=== PATIENT | female | born 1980 | race African-American/Black ===

== ENCOUNTER 2016-10-27 00:36 | Emergency (ER) | payer BC ==
[~2016-10-27] VITALS: Ht 167.6 cm; Wt 76.0 kg
[~2016-10-27 00:36] MED LIST: CHLO.12%30 SSP; IBUP800T23 PO; PENI500T PO; VIST50CA PO
[2016-10-27 00:37] VITALS: BP 167/86; PULSE 85; RESP 16; TEMP 97.1; O2SAT 100
[2016-10-27] MEDS ORDERED: IBUPROFEN 800 MG TAB PO ONE (01:15)
[2016-10-27] MEDS ORDERED: TETRACAINE 0.5% OPTH SOLN 2 ML BTL LEFT EYE ONE (01:15)
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
[2016-10-27] MEDS ORDERED: TETRACAINE 0.5% OPTH SOLN 15 ML BTL LEFT EYE ONE (01:30)
[2016-10-27] MEDS ORDERED: ERYTOIN10 LEFT EYE (01:58)
[2016-10-27] MEDS ORDERED: DICL75TA PO (01:58)
== END 2016-10-27 02:22 | disposition home or self-care (01) ==
LOC: NEPB 00:36
DX: H57.12 Ocular pain, left eye (principal); I10 Essential (primary) hypertension; H53.8 Other visual disturbances; H11.32 Conjunctival hemorrhage, left eye
CPT/HCPCS: 99283

== ENCOUNTER 2017-10-07 05:57 | Emergency (ER) | payer BC, OTHER ==
[~2017-10-07] VITALS: Ht 165.1 cm; Wt 75.0 kg
[~2017-10-07 05:57] MED LIST changes: -CHLO.12%30 SSP; +DICL75TA PO; +ERYTOIN10 LEFT EYE; -IBUP800T23 PO; -PENI500T PO; -VIST50CA PO
[2017-10-07 05:59] VITALS: BP 143/79; PULSE 80; RESP 16; TEMP 98.1; O2SAT 99
[2017-10-07] MEDS ORDERED: ACETAMINOPHEN 325 MG TAB PO ONE (06:15)
--- NOTE | 2017-10-07 06:16 | PD ---
HPI Chief Complaint: Back/ Neck Pain or Injury Time Seen by Provider: 06:12 Travel History International Travel<30 days: No Contact w/Intl Traveler<30days: No Traveled to known affect area: No History of Present Illness HPI This is a 37-year-old female who is 13 weeks based on an ultrasound performed 4 days ago. She is here complaining of left-sided neck pain. Symptoms started 3 days ago. The pain is an aching pain in the posterior left side of her neck which is worse with movement of the neck. She has not tried using the [id number] medication for symptom relief. She has no other associated symptoms. [facility] Past Medical History Diminished Hearing: No Hypertension: Yes Immunizations Current: Yes ?: : 5 Para: 3 : 2 Past Surgical History Other Surgery: Yes () Social History Alcohol Use: No Tobacco Use: No Substance Use: No Allergies-Medications (Allergen,Severity, Reaction): Coded Allergies: No Known Allergies (Verified Adverse Reaction, Unknown, 10/07/17) Reported Meds & Prescriptions Reported Meds & Active Scripts Active No Active Prescriptions or Reported Medications Review of Systems Except as stated in HPI: all other systems reviewed are Neg Physical Exam Narrative GENERAL: Well-developed well-nourished female in no acute distress SKIN: Warm and dry. HEAD: Atraumatic. Normocephalic. EYES: Pupils equal and round. No scleral icterus. No injection or drainage. ENT: No nasal bleeding or discharge. Mucous membranes pink and moist. NECK: Trachea midline. No JVD. CARDIOVASCULAR: Regular rate and rhythm. No murmur appreciated. RESPIRATORY: No accessory muscle use. Clear to auscultation. Breath sounds equal bilaterally. GASTROINTESTINAL: Abdomen soft, non-tender, nondistended. Hepatic and splenic margins not palpable. MUSCULOSKELETAL: No obvious deformities. The patient's pain is localized to the left cervical paravertebral musculature. No tenderness to palpation. The patient maintains full rotation of the neck. NEUROLOGICAL: Awake and alert. No obvious cranial nerve deficits. Motor grossly within normal limits. Normal speech. Data Data Last Documented VS Vital Signs Date Time Temp Pulse Resp B/P (MAP) Pulse Ox O2 Delivery O2 Flow Rate FiO2 10/07/17 05:59 98.1 80 16 143/79 (100) 99 Room Air Orders Orders Acetaminophen (Tylenol) (10/07/17 06:15) Ed Discharge Order (10/07/17 06:14) [facility] Medical Decision Making Medical Screen Exam Complete: Yes Emergency Medical Condition: Yes Medical Record Reviewed: Yes Differential Diagnosis Cervical strain, cervical artery dissection, herniated nucleus pulposis, meningitis, lymphadenitis Narrative Course 37-year-old female presents with posterior left-sided neck pain for 3 days. Examination is reassuring. Her symptoms appear to be muscular in nature. Recommended Tylenol which is category B, moist warm and cool compresses. She is stable for discharge. Diagnosis Primary Impression: Cervical strain Additional Instructions: Take [id number] Tylenol for pain per dosing instructions on the bottle. Alternate warm compresses and cool compresses several times a day. Follow up closely with primary care physician and return for any emergent medical conditions. Med/Other Pt SpecificInfo: No Change to Meds Scripts No Active Prescriptions or Reported Meds Disposition: 01 DISCHARGE HOME Condition: Stable Gregorio Greer Oct 07, 2017 06:16
== END 2017-10-07 06:29 | disposition home or self-care (01) ==
LOC: NEPD 05:57
DX: S16.1XXA Strain of muscle, fascia and tendon at neck level, initial encounter (principal); O13.1 Gestational [pregnancy-induced] hypertension without significant proteinuria, first trimester; I10 Essential (primary) hypertension; Z3A.13 13 weeks gestation of pregnancy; X58.XXXA Exposure to other specified factors, initial encounter
CPT/HCPCS: 99282

== ENCOUNTER 2018-01-19 15:39 | Emergency (ER) | payer OTHER ==
[~2018-01-19] VITALS: Ht 165.1 cm; Wt 79.5 kg
[2018-01-19 15:45] VITALS: BP 131/69; PULSE 89; RESP 18; TEMP 97.5; O2SAT 100
--- NOTE | 2018-01-19 15:59 | PD ---
Physical Exam Date Seen by Provider: Jan 19, 2018 Time Seen by Provider: 15:56 Narrative 38 year old female presents to the emergency department for evaluation of a frontal headache that started on Thursday, 3 days ago. She does reports h/o headaches. She is currently 28 weeks . Current pain is 2/10. Data Data Last Documented VS Vital Signs Date Time Temp Pulse Resp B/P (MAP) Pulse Ox O2 Delivery O2 Flow Rate FiO2 01/19/18 15:45 97.5 89 18 131/69 (89) 100 MDM Supervised Visit with AMBER: No Narrative Course 38 year old female presents to the emergency department for evaluation of a headache. After patient was triaged, she states she was concerned about her blood pressure and now wants to leave. She is aware she is leaving AMA. She is instructed to follow up with her OB. She is to return for any acute, worsening of symptoms. Diagnosis Primary Impression: Left against medical advice Scripts No Active Prescriptions or Reported Meds Disposition: 07 AGAINST MEDICAL ADVICE Adele Iraheta Jan 19, 2018 15:59
== END 2018-01-19 17:28 | disposition left against medical advice (07) ==
LOC: NED 15:39
DX: O26.893 Other specified pregnancy related conditions, third trimester (principal); R51 Headache; R03.0 Elevated blood-pressure reading, without diagnosis of hypertension; Z3A.28 28 weeks gestation of pregnancy; Z34.93 Encounter for supervision of normal pregnancy, unspecified, third trimester
CPT/HCPCS: 99281

== ENCOUNTER 2018-01-25 10:30 | Observation (INO) | payer OTHER ==
[2018-01-25] VITALS (24 sets, daily range): BP systolic 129–169; BP diastolic 63–92; PULSE 89–109; RESP 16–18; TEMP 98.1–98.8
[2018-01-25] MEDS ORDERED: LACTATED RINGER'S 1000 ML INJ 1,000 ML IV SCH (10:53)
--- NOTE | 2018-01-25 11:01 | PD ---
HPI Chief Complaint abdominal pain Date Seen: Jan 25, 2018 Time Seen: 10:54 Travel History International Travel<30 Days: No Contact w/Intl Traveler<30Days: No History of Present Illness HPI Patient is a 38 year old reportedly at 28 and 3/7 weeks gestation per patient, ZAINA 04/16/2018 based on first trimester US, patient of Magalys Lovell, who presents with severe abdominal contractions since this morning. She had two episodes of vomiting this morning as well. Possible leakage of fluid this morning but she thought it was urine. She denies vaginal bleeding and contractions. She feels baby moving regularly. She denies RIVERA/N/V/D/fever/sick contacts/SOB/calf pain/dizziness/seeing spots. OB care is with Magalys Lovell. She notes that her pain does not feel like labor pains and is located across the top of the abdomen. She has history of pre-eclampsia in two of her previous , requiring induction. History Past Medical History Narrative Medical Denies Per EMR, pre-existing chronic HTN noted in 2012, not on medications then or at this time Obstetric History Obstetric History Blood type A+ First visit during this at 10 weeks, reportedly uncomplicated so far History of PreE x 2 pregnancies BP 131/69 in ED 01/19/2018 Past Surgical History Surgical History: No Previous Surgery Family History Family History: Negative Social History Alcohol Use: No Tobacco Use: No Substance Abuse: No Allergies-Medications (Allergen,Severity, Reaction): Coded Allergies: No Known Allergies (Verified Adverse Reaction, Unknown, 10/07/17) Home Meds No Active Prescriptions or Reported Meds Review of Systems Except as stated in HPI: all other systems reviewed are Neg Physical Exam Narrative GENERAL: Well-nourished, well-developed patient appearing to be in significant pain every 5 or so minutes SKIN: Warm and dry. No rashes or ecchymoses. HEAD: Normocephalic and atraumatic. EYES: No scleral icterus. No injection or drainage. ENT: No nasal drainage noted. Mucous membranes pink. Airway patent. NECK: Supple, trachea midline. No JVD. CARDIOVASCULAR: Regular rate and rhythm without murmurs, gallops, or rubs. RESPIRATORY: Breath sounds equal bilaterally. No accessory muscle use. ABDOMEN/GI: Abdomen soft during pain episodes, bowel sounds present, no rebound , no guarding Gravid, fundal height > umbilicus GENITOURINARY: External Genitalia: intact and normal in appearance Cervix: closed, thick, station high Membranes: Amnisure negative Uterine Contractions: noted every 3 minutes FHT's: Category: 1 Baseline: 160s Reactive: N Variability: mod Decels: absent EXTREMITIES: No cyanosis or edema. BACK: Nontender without obvious deformity. No CVA tenderness. NEUROLOGICAL: Awake and alert. Motor and sensory grossly within normal limits. Five out of 5 muscle strength in all muscle groups. Normal speech. Data Data Vital Signs Reviewed: Yes (BP 160/88) Orders Orders Vital Signs (Adult) .ON ADMISSION (01/25/18 10:53) ^ Labor Status (01/25/18 10:53) Urinalysis - C+S If Indicated (01/25/18 10:53) ^ Non Stress Test (01/25/18 10:53) Cbc No Diff, Includes Plts (01/25/18 10:53) Comprehensive Metabolic Panel (01/25/18 10:53) Fibronectin (01/25/18 10:53) Lactated Ringer's 1000 Ml Inj (Lr 1000 M (01/25/18 10:53) Ob/Psych Drug Screen, Urine (01/25/18 10:53) Labs GBS unknown MDM Medical Record Reviewed: Yes Narrative Course / MDM 38 year old at 28 and 3/7 weeks, patient of Magalys Lovell, presenting with cyclical abdominal pain, vomiting since this morning. Differential including labor, UTI, GI pathology. High BPs noted, on review of EMR and records has had no elevated BPs this . Not on medications for HTN. * status: Cat 1 tracing * CTX every 3 minutes on toco * Amnisure negative * Cervix closed * Will give 1L LR bolus, check CBC/CMP/lipase/FFN, continue toco and monitoring * For pain and contractions give Fentanyl 50mcg IV x 1 * BP after pain medications already reduced, will continue to monitor and initiate BP protocol PRN * If contractions continue will give Terbutaline and assess with US/further workup Discussed and evaluated with Kristie Young (RN) Plan Disposition pending labs, if labs are negative will discharge patient home with recommendations for bed rest, heating pad, acetaminophen PRN, and close f/u with her OB provider. Discussed plan with Dr. Hussein who agrees Update @1310: labs within normal limits, patient pain improved, CTX resolved. Patient counseled on recommendations above and will be discharged to home with labor precautions. Has f/u appt with Magalys Lovell in two days. Update@3851: will admit to 23hr observation given pain persists, order OB US Diagnosis Diagnosis: Primary Impression: Abdominal pain during in third trimester Disposition: 01 DISCHARGE HOME Condition: Stable Scripts No Active Prescriptions or Reported Meds Patient Instructions: Abdominal Pain in (ED) Departure Forms: Tests/Procedures, Work Release Enter return to work date: Feb 01, 2018 Special Instructions: No heavy lifting Myrna Lynn MD Jan 25, 2018 11:01
[2018-01-25 11:44] LABS: BILIRUBIN, URINE NEG (NEG); BLOOD, URINE NEG (NEG); GLUCOSE,URINE NEG (NEG); KETONE, URINE NEG (NEG); MUCUS URINE FEW /lpf (OCC); NITRITE,URINE NEG (NEG); PH, URINE 6.5 (5.0-8.5); SQUAMOUS EPITHELIAL CELL URINE 1 /hpf (0-5); URINE COLOR LIGHT-YELLOW (YELLW/STRAW); URINE LEUKOCYTE ESTERASE TRACE (NEG)
[2018-01-25 12:05] LABS: HEMATOCRIT 32.9 % (35.0-46.0); HEMOGLOBIN 11.3 GM/DL (11.6-15.3); MEAN CELL VOLUME 84.8 FL (80.0-100.0); MEAN CORPUSCULAR HEMOGLOBIN 29.1 PG (27.0-34.0); MEAN CORPUSCULAR HGB CONC 34.3 % (32.0-36.0); MEAN PLATELET VOLUME 8.6 FL (7.0-11.0); PLATELET COUNT 246 TH/MM3 (150-450); RED BLOOD COUNT 3.88 MIL/MM3 (4.00-5.30); RED CELL DISTRIBUTION WIDTH 13.2 % (11.6-17.2); WHITE BLOOD COUNT 8.5 TH/MM3 (4.0-11.0)
[2018-01-25 12:22] LABS: ALBUMIN 3.3 GM/DL (3.4-5.0); AST (GOT) 12 U/L (15-37); BICARBONATE 23.5 MEQ/L (21.0-32.0); BLOOD UREA NITROGEN 9 MG/DL (7-18); CHLORIDE 107 MEQ/L (98-107); CREATININE 0.74 MG/DL (0.50-1.00); GLOMERULAR FILTRATION RATE 107 ML/MIN (>89); GLUCOSE,RANDOM 90 MG/DL (74-106); SODIUM (NA) 139 MEQ/L (136-145)
[2018-01-25 12:24] LABS: ALT (GPT) 17 U/L (10-53)
[2018-01-25 12:25] LABS: ALKALINE PHOSPHATASE 58 U/L (45-117); TOTAL BILIRUBIN ADULT 0.4 MG/DL (0.2-1.0); TOTAL PROTEIN 7.5 GM/DL (6.4-8.2)
--- NOTE | 2018-01-25 13:43 | HHI.HP ---
HPI Chief Complaint abdominal pain Date Seen: Jan 25, 2018 Time Seen: 13:39 Travel History International Travel<30 Days: Yes Contact w/Intl Traveler<30Days: Yes Name of Country Traveled to: [facility], [place] Known Affected Area: No History of Present Illness HPI Patient is a 38 year old reportedly at 28 and 3/7 weeks gestation per patient, ZAINA 04/16/2018 based on first trimester US, patient of Magalys Lovell, who presents with severe abdominal contractions since this morning. She had two episodes of vomiting this morning as well. Possible leakage of fluid this morning but she thought it was urine. She denies vaginal bleeding and contractions. She feels baby moving regularly. She denies RIVERA/N/V/D/fever/sick contacts/SOB/calf pain/dizziness/seeing spots. OB care is with Magalys Lovell. She notes that her pain does not feel like labor pains and is located across the top of the abdomen. She has history of pre-eclampsia in two of her previous , requiring induction. History Past Medical History Narrative Medical Per EMR, pre-existing chronic HTN noted in 2012, not on medications then or at this time Obstetric History Obstetric History Blood type A+ First visit during this at 10 weeks, reportedly uncomplicated so far History of PreE x 2 pregnancies BP 131/69 in ED 01/19/2018 Past Surgical History Surgical History: No Previous Surgery Family History Family History: Negative Social History Alcohol Use: No Tobacco Use: No Substance Abuse: No Allergies-Medications (Allergen,Severity, Reaction): Coded Allergies: No Known Allergies (Verified Adverse Reaction, Unknown, 10/07/17) Home Meds No Active Prescriptions or Reported Meds Review of Systems Except as stated in HPI: all other systems reviewed are Neg Physical Exam Vital Signs Date Time Temp Pulse Resp B/P (MAP) Pulse Ox O2 Delivery O2 Flow Rate FiO2 01/25/18 13:00 92 131/76 (94) 01/25/18 12:45 89 133/75 (94) 01/25/18 12:30 91 129/78 (95) 01/25/18 12:15 92 132/80 (97) 01/25/18 12:00 94 135/68 (90) 01/25/18 11:45 97 152/74 (100) 4/2/18 11:45 98.1 18 01/25/18 11:30 102 138/83 (101) 01/25/18 11:24 93 138/92 (107) 01/25/18 11:07 96 169/89 (115) 01/25/18 11:00 18 01/25/18 10:59 94 160/88 (112) Narrative GENERAL: Well-nourished, well-developed patient appearing to be in significant pain every 5 or so minutes SKIN: Warm and dry. No rashes or ecchymoses. HEAD: Normocephalic and atraumatic. EYES: No scleral icterus. No injection or drainage. ENT: No nasal drainage noted. Mucous membranes pink. Airway patent. NECK: Supple, trachea midline. No JVD. CARDIOVASCULAR: Regular rate and rhythm without murmurs, gallops, or rubs. RESPIRATORY: Breath sounds equal bilaterally. No accessory muscle use. ABDOMEN/GI: Abdomen soft during pain episodes, bowel sounds present, no rebound , no guarding Gravid, fundal height > umbilicus GENITOURINARY: External Genitalia: intact and normal in appearance Cervix: closed, thick, station high Membranes: Amnisure negative Uterine Contractions: noted every 3 minutes FHT's: Category: 1 Baseline: 160s Reactive: N Variability: mod Decels: absent EXTREMITIES: No cyanosis or edema. BACK: Nontender without obvious deformity. No CVA tenderness. NEUROLOGICAL: Awake and alert. Motor and sensory grossly within normal limits. Five out of 5 muscle strength in all muscle groups. Normal speech. Caprini VTE Risk Assessment Caprini VTE Risk Assessment: Mod/High Risk (score >= 2) Caprini Risk Assessment Model Point Value = 1 Point Value = 2 Point Value = 3 Point Value = 5 Age 41-60 Minor surgery BMI > 25 kg/m2 Swollen legs Varicose veins or History of unexplained or recurrent spontaneous Oral contraceptives or hormone replacement Sepsis (< 1 month) Serious lung disease, including pneumonia (< 1 month) Abnormal pulmonary function Acute myocardial infarction Congestive heart failure (< 1 month) History of inflammatory bowel disease Medical patient at bed rest Age 61-74 Arthroscopic surgery Major open surgery (> 45 min) Laparoscopic surgery (> 45 min) Malignancy Confined to bed (> 72 hours) Immobilizing plaster cast Central venous access Age >= 75 History of VTE Family history of VTE Factor V Leiden Prothrombin [id number] Lupus anticoagulant Anticardiolipin antibodies Elevated serum homocysteine Heparin-induced thrombocytopenia Other congenital or acquired thrombophilia Stroke (< 1 month) Elective arthroplasty Hip, pelvis, or leg fracture Acute spinal cord injury (< 1 month) Prophylaxis Regimen Total Risk Factor Score Risk Level Prophylaxis Regimen 0-1 Low Early ambulation 2 Moderate Order ONE of the following: *Sequential Compression Device (SCD) *Heparin 5000 units SQ BID 3-4 Higher Order ONE of the following medications: *Heparin 5000 units SQ TID *Enoxaparin/Lovenox 40 mg SQ daily (WT < 150 kg, CrCl > 30 mL/min) *Enoxaparin/Lovenox 30 mg SQ daily (WT < 150 kg, CrCl > 10-29 mL/min) *Enoxaparin/Lovenox 30 mg SQ BID (WT < 150 kg, CrCl > 30 mL/min) AND/OR *Sequential Compression Device (SCD) 5 or more Highest Order ONE of the following medications: *Heparin 5000 units SQ TID (Preferred with Epidurals) *Enoxaparin/Lovenox 40 mg SQ daily (WT < 150 kg, CrCl > 30 mL/min) *Enoxaparin/Lovenox 30 mg SQ daily (WT < 150 kg, CrCl > 10-29 mL/min) *Enoxaparin/Lovenox 30 mg SQ BID (WT < 150 kg, CrCl > 30 mL/min) AND *Sequential Compression Device (SCD) Data Data Vital Signs Reviewed: Yes (wnl) Orders Orders Vital Signs (Adult) .ON ADMISSION (01/25/18 10:53) ^ Labor Status (01/25/18 10:53) Urinalysis - C+S If Indicated (01/25/18 10:53) ^ Non Stress Test (01/25/18 10:53) Cbc No Diff, Includes Plts (01/25/18 10:53) Comprehensive Metabolic Panel (01/25/18 10:53) Fibronectin (01/25/18 10:53) Lactated Ringer's 1000 Ml Inj (Lr 1000 M (01/25/18 10:53) Ob/Psych Drug Screen, Urine (01/25/18 10:53) Fentanyl Inj (Fentanyl Inj) (01/25/18 11:15) Lipase (01/25/18 11:13) Amylase (01/25/18 11:26) Ob (2e) Additional Admit Info (01/25/18 13:37) Place In Observation (01/25/18 ) Diet Npo (01/25/18 Lunch) Vital Signs (Adult) MICHAEL.L2Q-HBSUT AWAKE (01/25/18 13:34) Heart (01/25/18 13:34) Activity Bed Rest (01/25/18 13:34) Lactated Ringer's 1000 Ml Inj (Lr 1000 M (01/25/18 13:34) Sodium Chloride 0.9% Flush (Ns Flush) (01/25/18 21:00) Sodium Chloride 0.9% Flush (Ns Flush) (01/25/18 13:45) Vital Signs (Adult) .ON ADMISSION (01/25/18 13:34) ^ Labor Status (01/25/18 13:34) ^ Non Stress Test (01/25/18 13:34) Us Ob Bpp Wo Nst (01/25/18 13:34) Labs Laboratory Tests Test 01/25/18 10:55 01/25/18 11:20 Urine Color LIGHT-YELLOW Urine Turbidity CLEAR Urine pH 6.5 Urine Specific Delta 1.015 Urine Protein NEG Urine Glucose (UA) NEG Urine Ketones NEG Urine Occult Blood NEG Urine Nitrite NEG Urine Bilirubin NEG Urine Urobilinogen LESS THAN 2.0 Urine Leukocyte Esterase TRACE Urine RBC LESS THAN 1 Urine WBC 1 Urine Squamous Epithelial Cells 1 Urine Mucus FEW Microscopic Urinalysis Comment CULT NOT INDICATED Fibronectin NEGATIVE Urine Opiates Screen NEG Urine Barbiturates Screen NEG Urine Amphetamines Screen NEG Urine Benzodiazepines Screen NEG Urine Cocaine Screen NEG Urine Cannabinoids Screen NEG White Blood Count 8.5 Red Blood Count 3.88 Hemoglobin 11.3 Hematocrit 32.9 Mean Corpuscular Volume 84.8 Mean Corpuscular Hemoglobin 29.1 Mean Corpuscular Hemoglobin Concent 34.3 Red Cell Distribution Width 13.2 Platelet Count 246 Mean Platelet Volume 8.6 Blood Urea Nitrogen 9 Creatinine 0.74 Random Glucose 90 Total Protein 7.5 Albumin 3.3 Calcium Level 9.0 Alkaline Phosphatase 58 Aspartate Amino Transf (AST/SGOT) 12 Alanine Aminotransferase (ALT/SGPT) 17 Total Bilirubin 0.4 Sodium Level 139 Potassium Level 4.1 Chloride Level 107 Carbon Dioxide Level 23.5 Anion Gap 9 Estimat Glomerular Filtration Rate 107 Amylase Level 80 Lipase 179 Assessment/Plan Problem List: (1) Abdominal pain during in third trimester ICD Codes: O26.893 - Other specified related conditions, third trimester; R10.9 - Unspecified abdominal pain Status: Acute Assessment and Plan 38 year old at 28 and 3/7 weeks, patient of Magalys Lovell, presenting with cyclical abdominal pain, vomiting since this morning. Differential including labor, UTI, GI pathology. High BPs noted, on review of EMR and records has had no elevated BPs this . Not on medications for HTN. * status: Cat 1 tracing * CTX every 3 minutes on toco * Amnisure negative * Cervix closed * Will give 1L LR bolus, check CBC/CMP/lipase/FFN, continue toco and monitoring * For pain and contractions give Fentanyl 50mcg IV x 1 * BP after pain medications already reduced, will continue to monitor and initiate BP protocol PRN * If contractions continue will give Terbutaline and assess with US/further workup * Disposition pending labs, if labs are negative will discharge patient home with recommendations for bed rest, heating pad, acetaminophen PRN, and close f/ u with her OB provider. Update @1310: labs within normal limits, patient pain improved, CTX resolved. Patient counseled on recommendations above and will be discharged to home with labor precautions. Has f/u appt with Magalys Lovell in two days. Update@1335: will admit to 23hr observation given pain persists, order OB US and RUQ US for further evaluation. Pain control with morphine 2mg q3hr IV pain 3 -5, 4mg q3hr IV pain 6-10, 2mg IV for breakthrough pain. NPO and bed rest. Discharge Planning Pending further w/u Seen and discussed with Dr. Hussein who agrees with plan Myrna Lynn MD Jan 25, 2018 13:42
[2018-01-25] MEDS ORDERED: SODIUM CHLORIDE 0.9% FLUSH 10 ML FLUSH IV FLUSH PRN (13:45)
[2018-01-25] MEDS ORDERED: ONDANSETRON HCL 4 MG/2 ML VIAL IV PUSH PRN (13:45)
[2018-01-25] MEDS ORDERED: MORPHINE SULFATE 2 MG/ML SYRINGE IV PUSH PRN ×2 (14:00)
[2018-01-25] MEDS ORDERED: MORPHINE SULFATE 4 MG/ML INJ IV PUSH PRN (14:00)
[2018-01-25] MEDS ORDERED: NALOXONE HCL 0.4 MG/ML AMP IV PUSH PRN (14:00)
--- NOTE | 2018-01-25 14:58 | RADRPT ---
EXAM DATE/TIME: 01/25/2018 14:04 [facility] COMPARISON: No previous studies available for comparison. INDICATIONS : Right upper quadrant pain. MEDICAL HISTORY : Hypertension. 3rd trimester . SURGICAL HISTORY : None. ENCOUNTER: Initial ACUITY: 1 day PAIN SCORE: 7/10 LOCATION: Right upper quadrant MEASUREMENTS: LIVER: 15.2 cm length COMMON DUCT: 4 mm RIGHT KIDNEY: 13.4 x 5.9 x 5.3 cm FINDINGS: LIVER: Normal echotexture without focal lesion or ductal dilatation. COMMON DUCT: No intraluminal mass or stone visualized. GALLBLADDER: Contains no stones, demonstrates no wall thickening or pericholecystic fluid. PANCREAS: The visualized portion of the head is unremarkable. RIGHT KIDNEY: Mild dilation of the collecting system of the right kidney. Normal renal cortical thickness. CONCLUSION: 1. No gallstone seen. 2. Mild dilation of the system of the right kidney, characteristic of 3rd trimester . Mikey Green MD on January 25, 2018 at 14:54 Board Certified Radiologist. This report was verified electronically.
[2018-01-25] MEDS: LACTATED RINGER'S 1000 ML INJ 1,000 ML IV SCH ×2 (15:14→20:20)
[2018-01-25] MEDS ORDERED: TERBUTALINE INJ 1 MG/ML AMP ONE (16:09)
[2018-01-25] MEDS ORDERED: TERBUTALINE INJ 1 MG/ML AMP SQ PRN (16:15)
[2018-01-25] MEDS ORDERED: SODIUM CHLORIDE 0.9% FLUSH 10 ML FLUSH IV FLUSH SCH (21:00)
[2018-01-26 07:36] VITALS: BP 122/75; PULSE 93; RESP 16; TEMP 98.3
--- NOTE | 2018-01-26 08:21 | HHI.PR ---
Subjective Remarks Patient has no pain this morning , has been sleeping through the night comfortably, pains essentially resolved with the terbutaline therapy given for contractions Objective Vital Signs Date Time Temp Pulse Resp B/P (MAP) Pulse Ox O2 Delivery O2 Flow Rate FiO2 01/26/18 07:36 16 01/26/18 07:36 93 122/75 (91) 01/26/18 07:36 98.3 01/25/18 23:00 18 01/25/18 21:15 16 01/25/18 19:17 16 01/25/18 19:14 97 131/73 (92) 01/25/18 19:14 98.5 18 01/25/18 18:15 16 01/25/18 17:20 109 01/25/18 17:15 99 01/25/18 17:15 98.8 01/25/18 17:10 101 01/25/18 17:09 100 133/63 (86) 01/25/18 17:05 97 01/25/18 17:00 99 01/25/18 16:00 16 01/25/18 14:15 98.7 16 01/25/18 14:00 97 162/82 (108) 01/25/18 13:00 92 131/76 (94) 01/25/18 12:45 89 133/75 (94) 01/25/18 12:30 91 129/78 (95) 01/25/18 12:15 92 132/80 (97) 01/25/18 12:00 94 135/68 (90) 01/25/18 11:45 97 152/74 (100) 01/25/18 11:45 98.1 18 01/25/18 11:30 102 138/83 (101) 01/25/18 11:24 93 138/92 (107) 01/25/18 11:07 96 169/89 (115) 01/25/18 11:00 18 01/25/18 10:59 94 160/88 (112) Result Diagram: 01/25/18 1120 01/25/18 1120 Imaging Patient's gallbladder ultrasound was negative for stones Obstetric ultrasound shows a possible rhabdomyoma in the heart and the recommend level 2 scan and echo for the baby in 1 week that appointment with OB diagnostic is 02/03/18 at 1215 Assessment and Plan Assessment and Plan Patient is a 28 week intrauterine that had abdominal pain yesterday that was severe enough that required admission to hospital. She was makayla and this is likely the cause of her pain. Contractions and pain resolved with IV fluid and terbutaline subcu, as well as several doses of IV fentanyl Plan patient be discharged today and she has an appointment for OB diagnostics look at the baby's heart next week on the day Thursday02/03/18 Parish Hussein II, MD Jan 26, 2018 08:21
[2018-01-26] MEDS ORDERED: PREN28TA2 PO (08:34)
--- NOTE | 2018-01-26 08:35 | HHI.DCPOC ---
Discharge Care Plan Diagnosis: (1) Abdominal pain during in third trimester Report Symptoms to Your Doctor -Temperature above 100.5 degrees -Redness, of incision or excessive or foul smelling drainage -Unusual pain or calf pain -Increased vaginal bleeding -Painful or difficulty urinating -Feelings of extreme sadness or anxiety after 2 weeks Goals to Promote Your Health * To prevent worsening of your condition and complications * To maintain your health at the optimal level Directions to Meet Your Goals Take your medications as prescribed Follow your dietary instruction Follow activity as directed Ensure plenty of rest for recovery Drink fluids for hydration Keep your appointments as scheduled Take your immunizations and boosters as scheduled If your symptoms worsen call your PCP, if no PCP go to Urgent Care Center or Emergency Room Smoking is Dangerous to Your Health. Avoid second hand smoke Call the 24-hour crisis hotline for domestic abuse at Myrna Lynn MD Jan 26, 2018 08:35
== END 2018-01-26 09:41 | disposition home or self-care (01) ==
LOC: HOBED 10:30 → H2EA 13:47
PROVIDERS: ADMIT Obstetrics & Gynecology Maternal & Fetal Medicine; ATTEND Obstetrics & Gynecology Maternal & Fetal Medicine
DX: O26.893 Other specified pregnancy related conditions, third trimester (principal); R10.9 Unspecified abdominal pain; R11.10 Vomiting, unspecified; O60.00 Preterm labor without delivery, unspecified trimester; O16.3 Unspecified maternal hypertension, third trimester; O09.523 Supervision of elderly multigravida, third trimester; Z3A.28 28 weeks gestation of pregnancy
CPT/HCPCS: 76705; 76816; 80053; 80307; 81001; 82150; 82731; 83690; 84112; 85027; 96361; 96372; 96374; 96376; 99285; G0378; G0481; J3010; J3105; J7120

== ENCOUNTER → 2018-02-03 | Outpatient (CLI) | payer OTHER ==
[~2018-02-03] MED LIST changes: -DICL75TA PO; -ERYTOIN10 LEFT EYE; +PREN28TA2 PO
== END ==
LOC: HPND 12:17
PROVIDERS: ATTEND Obstetrics & Gynecology Maternal & Fetal Medicine
DX: O09.523 Supervision of elderly multigravida, third trimester (principal); O35.8XX0 Maternal care for other (suspected) fetal abnormality and damage, not applicable or unspecified
CPT/HCPCS: 36415; 76811; 76825; 76827; 93325

== ENCOUNTER 2018-03-12 11:41 | Emergency (ER) | END 2018-03-12 13:13 | disposition home or self-care (01) | DX: O26.893 Other specified pregnancy related conditions, third trimester (principal); R10.2 Pelvic and perineal pain; Z3A.35 35 weeks gestation of pregnancy ==

== ENCOUNTER 2018-05-13 21:55 | Inpatient (IN) ==
[2018-05-13] MEDS ORDERED: Labetalol HCl Inj 100 MG/20 ML Vial IV.PUSH ONE (22:47)
--- NOTE | 2018-05-13 22:54 | ED ---
HPI General Chief complaint: Headache Stated complaint: Head Pain Time Seen by Provider: 05/13/18 22:42 Source: patient Mode of arrival: ambulatory Limitations: no limitations History of Present Illness HPI narrative: 38-year-old female patient with history of preeclampsia, gave 6 weeks ago at 37 weeks , presents to the ER today because she states that she has been having headaches since yesterday, and now feels like the right side of her face is feeling different. She had a mild right face asymmetry, states that she just notices this evening. She denies any trouble talking, walking, or numbness or weakness anywhere else. Related Data Home Medications Medication Instructions Recorded Confirmed No Known Home Medications 05/13/18 05/13/18 Allergies Allergy/AdvReac Type Severity Reaction Status Date / Time No Known Allergies Allergy Verified 05/13/18 22:39 Review of Systems Except as stated in HPI: all other systems reviewed are negative [facility] Medical History Medical History Hypertension (Acute) Social History Social History Substance History: No History of Abuse Second Hand Smoke Exposure: No Smoking Status: Never smoker How Often Do You Have a Drink Containing Alcohol: Never Recent Travel in [facility] within the Last 8 Weeks: No Recent Out of Country Travel within the Last 8 Weeks: No Immunization History Tetanus Immunization: Unsure Hx Influenza Vaccine This Season: No Exam Narrative Exam Narrative: GENERAL: Well-developed young -[place]aced[place] female patient currently in mild distress. Awake and oriented 3. SKIN: Focused skin assessment warm/dry. HEAD: Atraumatic. Normocephalic. EYES: Pupils equal and round. No scleral icterus. No injection or drainage. ENT: No nasal bleeding or discharge. Mucous membranes pink and moist. NECK: Trachea midline. No JVD. CARDIOVASCULAR: Regular rate and rhythm. No murmur appreciated. RESPIRATORY: No accessory muscle use. Clear to auscultation. Breath sounds equal bilaterally. GASTROINTESTINAL: Abdomen soft, non-tender, nondistended. Hepatic and splenic margins not palpable. MUSCULOSKELETAL: No obvious deformities. No clubbing. No cyanosis. No edema. NEUROLOGICAL: Awake and alert. No obvious cranial nerve deficits, possibly a mild right facial asymmetry although it is very subtle. Motor grossly within normal limits. Normal speech. No pronator drift. PSYCHIATRIC: Appropriate mood and affect; insight and judgment normal. Course Hospital Course: Patient was given labetalol in the ER. Her blood pressure steadily came down after that, she was given Tylenol for the headache. CT the brain did not show any signs of acute intracranial processes. Her paresthesias and her headache is much improved, no facial droop on reevaluation at 12:30 AM. I have discussed her case with Dr. Hussein of OB who states that he would like her to be transferred to the OB ED for observation and further treatment. Initial Documented Vital Signs Temperature 97.8 F 05/13/18 22:24 Pulse Rate 74 05/13/18 22:24 Respiratory Rate 16 05/13/18 22:24 Blood Pressure 199/96 H 05/13/18 22:24 Pulse Oximetry 100 05/13/18 22:24 Last Documented Vital Signs Temperature 97.8 F 05/13/18 22:24 Pulse Rate 74 05/14/18 00:16 Respiratory Rate 16 05/14/18 00:16 Blood Pressure 168/70 H 05/14/18 00:16 Pulse Oximetry 98 05/14/18 00:16 Medical Decision Making Differential Diagnosis Differential Diagnosis: Preeclampsia versus hypertensive emergency versus ICH versus CVA versus electrolyte abnormalities Lab Data Result diagrams: 05/13/18 22:52 05/13/18 22:52 Lab Results 05/13/18 05/13/18 Range/Units 22:52 22:52 WBC 4.4 (4.0-11.0) th/mm3 RBC 4.59 (4.00-5.30) mil/mm3 Hgb 13.0 (11.6-15.3) gm/dL Hct 38.5 (35.0-46.0) % MCV 83.9 (80.0-100.0) fL MCH 28.3 (27.0-34.0) pg MCHC 33.7 (32.0-36.0) % RDW 12.6 (11.6-17.2) % Plt Count 246 (150-450) th/mm3 MPV 8.6 (7.0-11.0) fL Neut % (Auto) 36.5 (16.0-70.0) % Lymph % (Auto) 49.9 H (9.0-44.0) % [place] % (Auto) 10.7 H (0.0-8.0) % Eos % (Auto) 2.1 (0.0-4.0) % Baso % (Auto) 0.8 (0.0-2.0) % Neut # (Auto) 1.6 L (1.8-7.7) th/mm3 Lymph # (Auto) 2.2 (1.0-4.8) th/mm3 [place] # (Auto) 0.5 (0.0-0.9) th/mm3 Eos # (Auto) 0.1 (0.0-0.4) th/mm3 Baso # (Auto) 0.0 (0.0-0.2) th/mm3 WBC Differential . Differential Comment Auto diff final Sodium 140 (136-145) meq/L Potassium 3.9 (3.5-5.1) meq/L Chloride 105 (98-107) meq/L Carbon Dioxide 26.4 (21.0-32.0) meq/L Anion Gap 9 (5-15) meq/L BUN 12 (7-18) mg/dL Creatinine 1.18 H (0.50-1.00) mg/dL Estimated GFR 62 L (>89) mL/min Random Glucose 105 (74-106) mg/dL Calcium 9.3 (8.5-10.1) mg/dL Total Bilirubin 0.6 (0.2-1.0) mg/dL AST 16 (15-37) U/L ALT 37 (10-53) U/L Alkaline Phosphatase 75 (45-117) U/L Total Protein 7.8 (6.4-8.2) g/dL Albumin 4.0 (3.4-5.0) g/dL Imaging Data Radiologist's impression: Head CT 05/13/18 22:42 CONCLUSION: 1. Negative noncontrast head CT. Discharge Plan Discharge Disposition Patient Disposition: 30 Still Patient Discharge Condition Condition: Good Discharge Details Anticipated Discharge Date: 05/14/18 Diagnosis: Hypertension, condition or complication Physicians Team ED Provider: Alejandra Gray Primary Care Provider: Primary Care Physici,Ro Rxs /Orders / Referrals /Forms Prescriptions: No Action No Known Home Medications RF: 0 Discharge Interventions Interventions: Vital Signs Last Done: 05/14/18 00:16 Status ED Status: With Doctor
--- NOTE | 2018-05-13 23:13 | CT ---
EXAM DATE: 05/13/2018 11:08 PM EDT AGE/SEX: 38 years / Female INDICATIONS: Cephalgia. CLINICAL DATA: This is the patient's initial encounter. Patient reports that signs and symptoms have been present for 1 day and indicates a pain score of 10/10. MEDICAL/SURGICAL HISTORY: Hypertension. None. RADIATION DOSE: 56.35 CTDI (mGy) COMPARISON: No prior exams available for comparison. TECHNIQUE: CT of the head without contrast. Using automated exposure control and adjustment of the mA and/or kV according to patient size, radiation dose was kept as low as reasonably achievable to ob tain optimal diagnostic quality images. DICOM format image data is available electronically for revi ew and comparison. FINDINGS: Cerebrum: The ventricles are normal for age. No evidence of midline shift, mass lesion, hemorrhage or acute infarction. No extraaxial fluid collections are seen. Posterior Fossa: The cerebellum and brainstem are intact. The 4th ventricle is midline. The cerebe llopontine angle is unremarkable. Extracranial: The visualized portion of the orbits is intact. Skull: The calvaria is intact. No evidence of skull fracture. CONCLUSION: 1. Negative noncontrast head CT. Electronically signed by: Garrett Torres MD 05/13/2018 11:11 PM EDT
[2018-05-13 23:14] LABS: Baso % (Auto) 0.8 % (0.0-2.0); Eos # (Auto) 0.1 th/mm3 (0.0-0.4); Eos % (Auto) 2.1 % (0.0-4.0); Hematocrit 38.5 % (35.0-46.0); Lymph # (Auto) 2.2 th/mm3 (1.0-4.8); Lymph % (Auto) 49.9 % (9.0-44.0); Mean Corpuscular HGB Conc 33.7 % (32.0-36.0); Mean Corpuscular Hemoglobin 28.3 pg (27.0-34.0); Mean Corpuscular Volume 83.9 fL (80.0-100.0); Mean Platelet Volume 8.6 fL (7.0-11.0); Mono # (Auto) 0.5 th/mm3 (0.0-0.9); Mono % (Auto) 10.7 % (0.0-8.0); Neut # (Auto) 1.6 th/mm3 (1.8-7.7); Neut % (Auto) 36.5 % (16.0-70.0); Platelet Count 246 th/mm3 (150-450); Red Blood Count 4.59 mil/mm3 (4.00-5.30); Red Cell Distribution Width 12.6 % (11.6-17.2); White Blood Count 4.4 th/mm3 (4.0-11.0)
[2018-05-13] MEDS ORDERED: Acetaminophen 500 MG Tablet PO ONE (23:29)
[2018-05-13 23:33] LABS: Alanine Aminotransferase 37 U/L (10-53); Anion Gap 9 meq/L (5-15); Aspartate Aminotransferase 16 U/L (15-37); Blood Urea Nitrogen 12 mg/dL (7-18); Calcium 9.3 mg/dL (8.5-10.1); Carbon Dioxide 26.4 meq/L (21.0-32.0); Chloride 105 meq/L (98-107); Glomerular Filtration Rate 62 mL/min (>89); Glucose,Random 105 mg/dL (74-106); Potassium 3.9 meq/L (3.5-5.1); Sodium 140 meq/L (136-145)
[2018-05-13 23:36] LABS: Alkaline Phosphatase 75 U/L (45-117); Total Protein 7.8 g/dL (6.4-8.2)
[2018-05-14 00:17] VITALS: O2SAT 98
--- NOTE | 2018-05-14 01:44 | P.HPOB ---
History of Present Illness History of Present Illness: 38-year-old female status post normal spontaneous vaginal delivery 6 weeks ago at [facility] presents to the emergency room with complaints of headache. Patient states that she started having a headache yesterday morning and took some ibuprofen with minimal relief. She then began to have associated tightness as headache got progressively worse throughout the day. She describes the pain as felt like a throbbing pain. The pain is located on the right side of her forehead and she has associated eye tightness. She also has been complaining of vaginal bleeding for the past 4 weeks. She states that after her delivery that she had some intense abdominal pain, they sent her home on ibuprofen. She says that vaginal bleeding does contain some dime sized blood clots in it. She denies any blurry vision, scotoma, chest pain, shortness of breath, fevers. CARE: Patient was diagnosed with preeclampsia during this . Was not on any medications. Delivered prematurely at 37 weeks due to her preeclampsia. Shoulder dystocia involved in delivery. OB history: . 2 elective abortions. All bruits normal spontaneous vaginal delivery. Diagnosis of preeclampsia after the first the of her first child. Diagnosed with preeclampsia during her second . For both pregnancies she is unsure if she was treated for her blood pressure but was placed in the hospital 1 week before her second delivery due to hypertension. QUEEN'S COUNSEL History: Patient denies any history of sexually times. Patient is not currently sexually active. Past medical history: None Family history: none Allergies: NKDA Medications: Ibuprofen. Social history: She denies any tobacco alcohol or drug abuse. - Inpatient Certification I certify that the inpatient services were ordered in accordance with Medicare regulations governing the order. This includes certification that hospital inpatient services are reasonable and necessary and in the case of services not specified as inpatient-only under 42 CFR 419.22(n), that they are appropriately provided as inpatient services in accordance to with the 2-midnight benchmark under 43 CFR 412.3(e) Review of Systems Constitutional: Reports headache(s), Denies chills, Denies fever(s), Denies increased appetite Eyes: Denies blind spots, Denies blurry vision, Denies change in vision, Denies double vision, Denies floaters, Denies irritation, Denies loss of vision, Denies sensitivity to light Cardiovascular: Denies chest pain, Denies fainting, Denies irregular heart rhythm, Denies lightheadedness Respiratory: Denies chest congestion, Denies cough, Denies pain on inspiration, Denies pain with cough, Denies shortness of breath Gastrointestinal: Reports abdominal pain, Reports cramping, Denies change in bowel habits, Denies change in stools, Denies nausea, Denies vomiting Comments: suprapubic tenderness Genitourinary: Reports abnormal vaginal bleeding, Denies blood in urine, Denies difficulty starting urination, Denies vaginal odor, Denies vaginal itching Comments: for 4 weeks with dime sized blood clots PMFSH - History History Provided By: Patient - Medical History Medical History: Medical History (Last Reviewed 05/13/18 @ 22:53 by Alejandra Gray MD) Hypertension - Tobacco History Second Hand Smoke Exposure: No Tobacco Use In Past 30 Days: No Smoking Status: Never smoker - Alcohol History How Often Do You Have a Drink Containing Alcohol: Never - Substance Use History Substance History: No History of Abuse - Travel History Recent Travel in the [facility] Within the Last 8 Weeks: No Recent Travel Out of the Country Within the Last 8 Weeks: No - Immunization History Tetanus Immunization: Unsure Hx Influenza Vaccine This Season: No Medications and Allergies Active Medications: Active Medications Sodium Chloride (Ns Flush) 2 ml IV.FLUSH PRN PRN PRN Reason: FLUSH AFTER USING IV ACCESS Allergies Allergy/AdvReac Type Severity Reaction Status Date / Time No Known Allergies Allergy Verified 05/13/18 22:39 Home Medications Medication Instructions Recorded Confirmed Type No Known Home Medications 05/13/18 05/13/18 History Exam Vital signs: Vital Signs 05/13/18 22:24 05/13/18 22:41 05/13/18 22:57 Temperature 97.8 F Pulse Rate 74 82 75 Respiratory Rate 16 18 Blood Pressure 199/96 H 213/113 H Pulse Oximetry 100 99 05/13/18 23:24 05/13/18 23:47 05/14/18 00:16 Temperature Pulse Rate 74 74 Respiratory Rate 18 16 Blood Pressure 179/110 H 168/88 H 168/70 H Pulse Oximetry 100 98 05/14/18 00:36 05/14/18 01:06 05/14/18 01:07 Temperature 97.8 F Pulse Rate 73 Respiratory Rate 18 Blood Pressure 158/87 H 148/91 H Pulse Oximetry 05/14/18 01:14 Temperature Pulse Rate 73 Respiratory Rate Blood Pressure 158/91 H Pulse Oximetry Intake & Output 05/13/18 05/13/18 05/14/18 06:59 18:59 06:59 Weight 79.379 kg - Constitutional no acute distress - Routine HEENT Exam Head: Present: normocephalic, atraumatic - Routine Respiratory Exam Present: CTA bilaterally. Absent: rales, stridor, wheezes - Routine Cardiovascular Exam Present: RRR, S1, S2 - Routine Abdominal Exam Present: soft, normoactive bowel sounds Comments: tender to palpation over the suprapubic region Uterus not palpable on examination Results - Labs CBC & Chem 7: 05/13/18 22:52 05/13/18 22:52 Labs: Laboratory Results - last 24 hr 05/13/18 05/13/18 22:52 22:52 WBC 4.4 RBC 4.59 Hgb 13.0 Hct 38.5 MCV 83.9 MCH 28.3 MCHC 33.7 RDW 12.6 Plt Count 246 MPV 8.6 Neut % (Auto) 36.5 Lymph % (Auto) 49.9 H Crisp % (Auto) 10.7 H Eos % (Auto) 2.1 Baso % (Auto) 0.8 Neut # (Auto) 1.6 L Lymph # (Auto) 2.2 Crisp # (Auto) 0.5 Eos # (Auto) 0.1 Baso # (Auto) 0.0 WBC Differential . Differential Comment Auto diff final Sodium 140 Potassium 3.9 Chloride 105 Carbon Dioxide 26.4 Anion Gap 9 BUN 12 Creatinine 1.18 H Estimated GFR 62 L Random Glucose 105 Calcium 9.3 Total Bilirubin 0.6 AST 16 ALT 37 Alkaline Phosphatase 75 Total Protein 7.8 Albumin 4.0 - Imaging Impressions Head CT 05/13/18 22:42 CONCLUSION: 1. Negative noncontrast head CT. Caprini VTE Risk Assessment Caprini VTE Risk Assessment: Moderate/High Risk (score >= 2) Caprini Risk Assessment Model: Point Value = 1 Point Value = 2 Point Value = 3 Point Value = 5 Age 41-60 Minor surgery BMI > 25 kg/m2 Swollen legs Varicose veins or History of unexplained or recurrent spontaneous Oral contraceptives or hormone replacement Sepsis (< 1 month) Serious lung disease, including pneumonia (< 1 month) Abnormal pulmonary function Acute myocardial infarction Congestive heart failure (< 1 month) History of inflammatory bowel disease Medical patient at bed rest Age 61-74 Arthroscopic surgery Major open surgery (> 45 min) Laparoscopic surgery (> 45 min) Malignancy Confined to bed (> 72 hours) Immobilizing plaster cast Central venous access Age >= 75 History of VTE Family history of VTE Factor V Leiden Prothrombin [id number] Lupus anticoagulant Anticardiolipin antibodies Elevated serum homocysteine Heparin-induced thrombocytopenia Other congenital or acquired thrombophilia Stroke (< 1 month) Elective arthroplasty Hip, pelvis, or leg fracture Acute spinal cord injury (< 1 month) Prophylaxis Regimen: Total Risk Factor Score Risk Level Prophylaxis Regimen 0-1 Low Early ambulation 2 Moderate Order ONE of the following: *Sequential Compression Device (SCD) *Heparin 5000 units SQ BID 3-4 Higher Order ONE of the following medications: *Heparin 5000 units SQ TID *Enoxaparin/Lovenox 40 mg SQ daily (WT < 150 kg, CrCl > 30 mL/min) *Enoxaparin/Lovenox 30 mg SQ daily (WT < 150 kg, CrCl > 10-29 mL/min) *Enoxaparin/Lovenox 30 mg SQ BID (WT < 150 kg, CrCl > 30 mL/min) AND/OR *Sequential Compression Device (SCD) 5 or more Highest Order ONE of the following medications: *Heparin 5000 units SQ TID (Preferred with Epidurals) *Enoxaparin/Lovenox 40 mg SQ daily (WT < 150 kg, CrCl > 30 mL/min) *Enoxaparin/Lovenox 30 mg SQ daily (WT < 150 kg, CrCl > 10-29 mL/min) *Enoxaparin/Lovenox 30 mg SQ BID (WT < 150 kg, CrCl > 30 mL/min) AND *Sequential Compression Device (SCD) Assessment and Plan - Diagnosis (1) Preeclampsia Code(s): O14.90 - Unspecified pre-eclampsia, unspecified trimester Status: Acute Plan: Monitoring. Urine Cath and Urine Morley UA and Urine Culture to rule out UTI (2) Vaginal bleeding Code(s): N93.9 - Abnormal uterine and vaginal bleeding, unspecified Status: Acute Plan: Post Likely Associated with her BP Will keep monitoring blood pressure. (3) Elevated serum creatinine Code(s): R79.89 - Other specified abnormal findings of blood chemistry Status : Acute Plan: Elevated Creatine of 1.18, compared to normal value in january. Follow Up Renal Ultrasound and Labs in AM
[2018-05-14] MEDS ORDERED: Mag Sulf/Water 4 gm/100 ml 100 ML IV.SIG ONE ×2 (02:44→02:45)
[2018-05-14] MEDS ORDERED: Labetalol HCl Inj 100 MG/20 ML Vial IV.PUSH PRN (02:44)
[2018-05-14] MEDS ORDERED: Mag Sulf/Water 40 gm/1000 ml 40 GM/1,000 ML BAG IV.CONT ONE (02:45)
[2018-05-14] MEDS ORDERED: Labetalol 200 MG Tablet PO SCH (03:00)
[2018-05-14] MEDS ORDERED: *Labetalol HCl Inj 100 MG/20 ML Vial PERIprocedural Use ONLY IV.PUSH ONE (03:30)
[2018-05-14 03:46] LABS: Bilirubin,Urine Negative (Negative); Clarity,Urine Clear (Clear); Color,Urine Colorless (Yellw/Straw); Glucose,Urine (UA) Negative (Negative); Leukocyte Esterase,Urine Negative (Negative); Nitrite,Urine Negative (Negative); Specific Gravity,Urine 1.006 (1.002-1.035)
[2018-05-14] MEDS ORDERED: Mag Sulf/Water 40 gm/1000 ml 40 GM/1,000 ML BAG IV.CONT SCH (04:24)
[2018-05-14 06:37] LABS: Baso % (Auto) 0.7 % (0.0-2.0); Eos # (Auto) 0.1 th/mm3 (0.0-0.4); Eos % (Auto) 1.7 % (0.0-4.0); Hematocrit 37.3 % (35.0-46.0); Hemoglobin 12.6 gm/dL (11.6-15.3); Lymph # (Auto) 1.6 th/mm3 (1.0-4.8); Mean Corpuscular HGB Conc 33.8 % (32.0-36.0); Mean Corpuscular Volume 82.8 fL (80.0-100.0); Mean Platelet Volume 8.4 fL (7.0-11.0); Mono # (Auto) 0.4 th/mm3 (0.0-0.9); Mono % (Auto) 9.7 % (0.0-8.0); Neut # (Auto) 1.8 th/mm3 (1.8-7.7); Neut % (Auto) 46.9 % (16.0-70.0); Platelet Count 226 th/mm3 (150-450); Red Cell Distribution Width 12.9 % (11.6-17.2); White Blood Count 3.9 th/mm3 (4.0-11.0)
[2018-05-14 07:01] LABS: Albumin 3.8 g/dL (3.4-5.0); Anion Gap 10 meq/L (5-15); Aspartate Aminotransferase 14 U/L (15-37); Blood Urea Nitrogen 12 mg/dL (7-18); Calcium 8.8 mg/dL (8.5-10.1); Carbon Dioxide 25.6 meq/L (21.0-32.0); Chloride 105 meq/L (98-107); Glomerular Filtration Rate 71 mL/min (>89); Glucose,Random 143 mg/dL (74-106); Potassium 3.8 meq/L (3.5-5.1); Sodium 141 meq/L (136-145)
[2018-05-14 07:02] LABS: Alanine Aminotransferase 33 U/L (10-53)
[2018-05-14 07:04] LABS: Alkaline Phosphatase 71 U/L (45-117); Total Protein 7.3 g/dL (6.4-8.2)
[2018-05-14] MEDS ORDERED: Acetaminophen 500 MG Tablet PO PRN (08:21)
[2018-05-14] MEDS ORDERED: Butalbital/APAP/Caff 50/325/40 MG Tablet PO PRN ×3 (09:20→10:00)
--- NOTE | 2018-05-14 09:44 | P.OBGPN ---
Ms. Don is a 38yo who is 6 weeks and was admitted for headache, vision changes, elevated BP of 213/113 and started on Mg and Labetalol. This morning she reports continued headache and hunger as well as feeling very tired. She states that vision changes have resolved. She denies any chest pain, difficulty breathing, leg pain, nausea, vomiting. Nursing reports that her urine output has been good about 2000cc when Morley was inserted and she continues to diurese >30cc/hr. PE: General- Patient appears very tired, uncomfortable with headache Cardiovascular- RRR, S1, S2 Respiratory- CTAB, no accessory muscle use Abdomen- NTND, normoactive bowel sounds : Morley in place, light yellow dilute urine 100cc Extremities- no edema, calf tenderness, pulses intact, no signs of DVT A/P: Elevated BP -Down to 139/73 this am. -Labetalol 200mg BID PO -Mg 24 hours (started at 4:24 this am) -Cr elevated to 1.18 on admission down to 1.06 this am -Awaiting Renal U/s results Headache -Patient does have a history of migraines -She denies vision changes -Monitor for worsening pain or vision changes -Fiorecet 1-2T ordered PRN for RIVERA MORRIS Hussein and ELIJAHW Dr Kunz
--- NOTE | 2018-05-14 11:58 | US ---
EXAM DATE: 05/14/2018 11:56 AM EDT AGE/SEX: 38 years / Female INDICATIONS: Increase lab values. CLINICAL DATA: This is the patient's initial encounter. Patient reports that signs and symptoms have been present for 1 day and indicates a pain score of 0/10. MEDICAL/SURGICAL HISTORY: . Pre eclampsia. Post 6 weeks. . COMPARISON: [facility] [place], US ABDOMEN - GALLBLADDER, 01/25/2018. . MEASUREMENTS: Right Kidney:__13.1 x 6.3 x 5.7 cm Left Kidney:__11.3 x 5.3 x 6.6 cm FINDINGS: Right Kidney: Normal echotexture and cortical thickness. No mass or hydronephrosis. Left Kidney: Normal echotexture and cortical thickness. No mass or hydronephrosis. Bladder: Morley catheter is present. Bladder decompressed. Other: None. CONCLUSION: 1. Negative renal sonogram. Electronically signed by: Loreta Valadez MD 05/14/2018 11:57 AM EDT
[2018-05-14] MEDS: Labetalol 200 MG Tablet PO SCH (18:49)
[2018-05-15] MEDS: Labetalol 200 MG Tablet PO SCH (07:19)
--- NOTE | 2018-05-15 09:24 | P.PNOB ---
Subjective Interval history: Ms. Don is a 38yo who is 6 weeks here for pre- eclampsia. BP overnight 19:50 157/104 about 1 hour after receiving evening Labetalol. Mg D/c this morning at 4:00. Morley d/c this morning as well. Patient reports mild headache despite Fioricet dosing. She denies any vision changes, chest pain, difficulty breathing, nausea vomiting. Objective Vital Signs/I&O: Vital Signs 05/14/18 09:25 05/14/18 10:10 05/14/18 10:40 Temperature Pulse Rate 83 80 65 Respiratory Rate 16 Blood Pressure 150/81 H 135/99 H 05/14/18 11:00 05/14/18 11:10 05/14/18 11:25 Temperature Pulse Rate 80 71 72 Respiratory Rate 18 Blood Pressure 125/78 05/14/18 12:10 05/14/18 13:10 05/14/18 13:55 Temperature Pulse Rate 72 73 67 Respiratory Rate 18 16 Blood Pressure 135/78 133/81 05/14/18 14:00 05/14/18 15:00 05/14/18 15:50 Temperature Pulse Rate 73 71 Respiratory Rate 16 Blood Pressure 152/91 H 05/14/18 15:55 05/14/18 16:43 05/14/18 16:55 Temperature Pulse Rate 78 73 Respiratory Rate 16 16 Blood Pressure 146/85 H 05/14/18 17:10 05/14/18 18:50 05/14/18 19:10 Temperature Pulse Rate 66 93 H 80 Respiratory Rate 18 Blood Pressure 155/92 H 156/92 H 05/14/18 19:25 05/14/18 19:50 05/14/18 20:12 Temperature 97.9 F Pulse Rate 83 88 Respiratory Rate 18 Blood Pressure 157/104 H 05/14/18 20:15 05/14/18 20:20 05/14/18 20:55 Temperature Pulse Rate 82 83 87 Respiratory Rate Blood Pressure 144/87 H 05/14/18 21:23 05/14/18 21:30 05/14/18 21:55 Temperature Pulse Rate 82 79 Respiratory Rate 16 Blood Pressure 142/84 H 05/14/18 22:37 05/14/18 22:40 05/14/18 22:55 Temperature Pulse Rate 79 80 Respiratory Rate 15 Blood Pressure 05/14/18 23:00 05/14/18 23:35 05/14/18 23:40 Temperature Pulse Rate 74 76 77 Respiratory Rate Blood Pressure 141/89 H 05/14/18 23:55 05/15/18 00:00 05/15/18 00:40 Temperature 97.8 F Pulse Rate 76 72 75 Respiratory Rate 14 16 Blood Pressure 145/94 H 05/15/18 00:55 05/15/18 01:30 05/15/18 01:40 Temperature Pulse Rate 76 79 79 Respiratory Rate 16 Blood Pressure 131/79 05/15/18 01:45 05/15/18 02:55 05/15/18 03:00 Temperature Pulse Rate 78 78 71 Respiratory Rate 15 Blood Pressure 124/78 05/15/18 03:55 05/15/18 04:15 05/15/18 04:25 Temperature 97.8 F Pulse Rate 73 74 68 Respiratory Rate Blood Pressure 141/87 H 130/85 05/15/18 05:01 05/15/18 06:00 05/15/18 06:39 Temperature Pulse Rate 73 73 Respiratory Rate 15 15 Blood Pressure 127/76 145/90 H 05/15/18 07:01 05/15/18 08:01 Temperature Pulse Rate 69 83 Respiratory Rate Blood Pressure 144/86 H 154/91 H Intake & Output 05/14/18 05/15/18 05/15/18 18:59 06:59 18:59 Intake Total 1000 / 1000 Balance 1000 / 1000 Intake: IV 1000 / 1000 LR 1000 mL Inj 1,000 ML @ 100 1000 / 1000 mls/hr IV.CONT .Q10H [facility] Rx#: [id number] Result Diagrams: 05/14/18 05:58 05/14/18 05:38 Objective Remarks: GENERAL: Well-nourished, well-developed patient. CARDIOVASCULAR: Regular rate and rhythm without murmurs, gallops, or rubs. RESPIRATORY: Breath sounds equal bilaterally. No accessory muscle use. ABDOMEN/GI: Abdomen soft, non-tender. Normoactive bowel sounds EXTREMITIES: Minimal pedal edema bilaterally. No cyanosis, non-tender, without signs of DVT. Medications and IVs: Active Medications Acetaminophen (Tylenol) 500 mg PO Q6H PRN PRN Reason: HEADACHE Last Admin: 05/14/18 08:43 Dose: 500 mg Acetaminophen/Butalbital/Caffeine (Fioricet 50-325-40) 1 tab PO Q8H PRN PRN Reason: RIVERA ON PAIN SCALE 3-7 Acetaminophen/Butalbital/Caffeine (Fioricet 50-325-40) 2 tab PO Q8H PRN PRN Reason: RIVERA ON PAIN SCALE 8-10 Last Admin: 05/14/18 10:05 Dose: 2 tab Calcium Gluconate (Calcium Gluconate Inj) 1 gm IV.PUSH PRN PRN PRN Reason: Magnesium toxicity Lactated Ringer's (Lr 1000 Ml Inj) 1,000 mls @ 100 mls/hr IV.CONT .Q10H [facility] Last Admin: 05/15/18 04:25 Dose: Not Given Labetalol HCl (Trandate) 200 mg PO Q12H [facility] Last Admin: 05/15/18 07:19 Dose: 200 mg Promethazine HCl (Phenergan) 25 mg PO Q6H PRN PRN Reason: SEE LABEL COMMENTS Last Admin: 05/15/18 04:30 Dose: 25 mg Sodium Chloride (Ns Flush) 2 ml IV.FLUSH BID [facility] Last Admin: 05/14/18 20:16 Dose: Not Given Sodium Chloride (Ns Flush) 2 ml IV.FLUSH PRN PRN PRN Reason: FLUSH AFTER USING IV ACCESS Assessment and Plan - Plan Ms. Don is 38yo at 6 weeks with pre-eclampsia. Hypertension -BP this morning 144/86 repeat was 154/91. -Increase Labetalol dosing to 400 BID -Mg D/c this morning -Elevated Cr on admission improved down to 1.06 yesterday morning -Renal U/s from yesterday unremarkable Headache -Continue Fioricet and Phenergan PRN for pain -Negative head CT on admission -Denies any vision changes -OOB with assistance -Advance diet to regular diet - Attending Attestation pt seen and examined. bps still elevated will increase labetalol to 400 mg BID. will continue follow for improvement.
[2018-05-15] MEDS ORDERED: Labetalol 100 MG Tablet PO ONE (09:38)
[2018-05-15] MEDS ORDERED: Labetalol 200 MG Tablet PO ONE (09:39)
[2018-05-15 13:08] LABS: Albumin 3.7 g/dL (3.4-5.0); Anion Gap 9 meq/L (5-15); Aspartate Aminotransferase 21 U/L (15-37); Blood Urea Nitrogen 9 mg/dL (7-18); Calcium 8.7 mg/dL (8.5-10.1); Carbon Dioxide 28.8 meq/L (21.0-32.0); Chloride 103 meq/L (98-107); Glomerular Filtration Rate 80 mL/min (>89); Glucose,Random 145 mg/dL (74-106); Potassium 3.6 meq/L (3.5-5.1); Sodium 141 meq/L (136-145)
[2018-05-15 13:09] LABS: Alanine Aminotransferase 38 U/L (10-53)
[2018-05-15 13:11] LABS: Alkaline Phosphatase 75 U/L (45-117); Total Protein 7.3 g/dL (6.4-8.2)
[2018-05-15 13:33] VITALS: RESP 18
[2018-05-15 15:15] VITALS: TEMP 99.2
[2018-05-15 16:18] VITALS: BP 141/77; PULSE 95
[2018-05-15] MEDS ORDERED: Labetalol 200 MG Tablet PO SCH (19:00)
== END 2018-05-15 17:40 | disposition home or self-care (01) ==
LOC: NEPC 21:55 → H2E 05-14 00:47
PROVIDERS: ADMIT Obstetrics & Gynecology Maternal & Fetal Medicine; ATTEND Obstetrics & Gynecology Maternal & Fetal Medicine
DX: O90.89 Other complications of the puerperium, not elsewhere classified; R20.2 Paresthesia of skin; O15.2 Eclampsia complicating the puerperium